=== PATIENT | female | born 1995 | race American Indian/Alaskan Native ===

== ENCOUNTER 2017-09-19 15:15 | Emergency (ER) | payer OTHER ==
[2017-09-19] MEDS ORDERED: Sodium Chloride 0.9% 1,000 ML IV STA (15:45)
[2017-09-19 15:58] VITALS: BMI 20.8
--- NOTE | 2017-09-19 16:08 | ED PDOC ---
Arrival/HPI - General Chief Complaint: GI Problem Time Seen by Provider: 09/19/17 15:44 Historian: Patient - History of Present Illness Narrative History of Present Illness (Text): 09/19/17 15:43 A 22 year old female, with no significant past medical history, presents to the emergency department complaining of s/p 10+ x vomiting non-bilious/non-bloody episodes that occurred upon waking up at 05:00 this morning. Patient reports last night having eaten home-prepared mac n/ cheese and steak prior to vomiting. LMP 06/29/2017. Patient is currently approximately 10 weeks . Denies any abdominal pain, any cardio/pulmonary symptoms, vaginal discharge/bleeding, or any other complaints at this time. Also, patient mentions having possible sick contact with boyfriend 1 week ago, whom was experiencing flu-like symptoms. PMD: Dr. Ernestine Washington 09/19/17 21:18 Past Medical History - Provider Review Nursing Documentation Reviewed: Yes - Infectious Disease Hx of Infectious Diseases: None - Tetanus Immunization Tetanus Immunization: Unknown - Reproductive Menopause: Yes - Past Medical History Past Medical History: No Previous - Psychiatric Hx Psychophysiologic Disorder: No Hx Anxiety: No Hx Bipolar Disorder: No Hx Depression: No Hx Emotional Abuse: No Hx Hallucinations: No Hx Panic Disorder: No Hx Post Traumatic Stress Disorder: No Hx Psychosis: No Hx Physical Abuse: No Hx Schizophrenia: No Hx Sexual Abuse: No Hx Substance Use: No - Past Surgical History Past Surgical History: No Previous - Anesthesia Hx Anesthesia: Yes Hx Anesthesia Reactions: No Hx Malignant Hyperthermia: No - Suicidal Assessment Feels Threatened In Home Enviroment: No Family/Social History - Physician Review Nursing Documentation Reviewed: Yes Family/Social History: No Known Family HX Smoking Status: Never Smoked Hx Alcohol Use: No Hx Substance Use: No Hx Substance Use Treatment: No Allergies/Home Meds Allergies/Adverse Reactions: Allergies No Known Allergies Allergy (Verified 09/19/17 15:45) Review of Systems - Physician Review All systems were reviewed & negative as marked: Yes - Review of Systems Respiratory: absent: SOB, Cough, Wheezing Cardiovascular: absent: Chest Pain, Palpitations Gastrointestinal: Vomiting (10+ times after waking up at 05:00). absent: Abdominal Pain Genitourinary Female: absent: Vaginal Bleeding, Vaginal Discharge Physical Exam Vital Signs Reviewed: Yes Vital Signs Temp Pulse Resp BP Pulse Ox 09/19/17 19:32 94 H 16 120/69 100 09/19/17 16:46 98.4 F 73 18 103/52 L 98 09/19/17 16:00 98.4 F 66 18 103/43 L 97 09/19/17 15:40 99.1 F 98 H 18 106/71 97 Temperature: Afebrile Blood Pressure: Normal Pulse: Regular Respiratory Rate: Normal Appearance: Positive for: Well-Appearing Pain Distress: None Mental Status: Positive for: Alert and Oriented X 3 - Systems Exam Head: Present: Atraumatic, Normocephalic Pupils: Present: PERRL Extroacular Muscles: Present: EOMI Conjunctiva: Present: Normal Mouth: Present: Moist Mucous Membranes Neck: Present: Normal Range of Motion Respiratory/Chest: Present: Clear to Auscultation, Good Air Exchange. No: Respiratory Distress, Accessory Muscle Use Cardiovascular: Present: Regular Rate and Rhythm, Normal S1, S2. No: Murmurs Abdomen: Present: Normal Bowel Sounds. No: Tenderness, Distention, Peritoneal Signs Back: Present: Normal Inspection Upper Extremity: Present: Normal Inspection. No: Cyanosis, Edema Lower Extremity: Present: Normal Inspection. No: Edema Neurological: Present: GCS=15, CN II-XII Intact, Speech Normal Skin: Present: Warm, Dry, Normal Color. No: Rashes Psychiatric: Present: Alert, Oriented x 3, Normal Insight, Normal Concentration Medical Decision Making ED Course and Treatment: 09/19/17 15:45 Impression: 22 year old female visiting ER for s/p 10+ x vomiting episodes. Physical examination is unremarkable. Plan: -- Labs -- Zofran -- IV Fluids -- Urinalysis -- Reassess and disposition Progress Notes: 09/19/17 21:20 PT FINALLY PO TOLERANT, SERIAL ABDOMINAL EXAMS are benign. Educated as to results of lab examination. - Lab Interpretations Lab Results: 09/19/17 16:25 09/19/17 16:25 Lab Results 09/19/17 18:37: Urine Color Yellow, Urine Appearance Clear, Urine pH 7.5, Ur Specific [place] 1.020, Urine Protein Trace H, Urine Glucose (UA) Negative, Urine Ketones >=80, Urine Blood Negative, Urine Nitrate Negative, Urine Bilirubin Negative, Urine Urobilinogen 0.2, Ur Leukocyte Esterase Negative, Urine RBC 0 - 2, Urine WBC 0 - 2, Ur Epithelial Cells 10 - 12, Urine Bacteria Few 09/19/17 17:35: Urine HCG, Qual Positive 09/19/17 16:25: Beta HCG, Quant [id number] H 09/19/17 16:25: PT 12.4, INR 1.09 H, APTT 28.6 09/19/17 16:25: WBC 11.8 H, RBC 4.85, Hgb 14.0, Hct 41.6, MCV 85.8, MCH 28.9, MCHC 33.7, RDW 12.7, Plt Count 269, MPV 10.4, Gran % 91.7 H, Lymph % (Auto) 2.6 L, [place] % (Auto) 5.6, Eos % (Auto) 0.0 L, Baso % (Auto) 0.1, Gran # 10.78 H, Lymph # (Auto) 0.3 L, [place] # (Auto) 0.7 H, Eos # (Auto) 0.0, Baso # (Auto) 0.01 , Neutrophils % (Manual) 94 H, Lymphocytes % (Manual) 2 L, Monocytes % (Manual) 4, Platelet Evaluation Normal 09/19/17 16:25: Sodium 140, Potassium 4.1, Chloride 104, Carbon Dioxide 23, Anion Gap 17, BUN 9, Creatinine 0.6 L, Est GFR ( Amer) > 60, Est GFR (Non -Af Amer) > 60, Random Glucose 85, Calcium 9.8, Total Bilirubin 1.3, AST 36, ALT 25, Alkaline Phosphatase 65, Total Protein 7.9, Albumin 4.3, Globulin 3.6, Albumin/Globulin Ratio 1.2, Lipase 55 - Medication Orders Current Medication Orders: Dextrose/Sodium Chloride (Dextrose 5%/0.45% Ns 1000 Ml) 1,000 mls @ 1,000 mls/ hr IV .Q1H MONICA Last Admin: 09/19/17 17:28 Dose: 1,000 mls/hr eMAR Start Stop Document 09/19/17 17:28 OCS (Rec: 09/19/17 17:28 OCS [id number]) Intravenous Solution Start Date 09/19/17 Start Time 17:28 End Date 09/19/17 End time 18:28 Total Infusion Time 60 Discontinued Medications Sodium Chloride (Sodium Chloride 0.9%) 1,000 mls @ 999 mls/hr IV .Q1H1M STA Stop: 09/19/17 16:45 Last Admin: 09/19/17 16:16 Dose: 999 mls/hr eMAR Start Stop Document 09/19/17 16:16 OCS (Rec: 09/19/17 16:16 OCS [id number]) Intravenous Solution Start Date 09/19/17 Start Time 16:16 End Date 09/19/17 End time 17:17 Total Infusion Time 61 Metoclopramide HCl (Reglan) 10 mg IVP STAT STA Stop: 09/19/17 19:51 Last Admin: 09/19/17 20:01 Dose: 10 mg IVP Administration Document 09/19/17 20:01 OCS (Rec: 09/19/17 20:01 OCS [id number]) Charges for Administration # of IVP Administrations 1 Nitrofurantoin Macrocrystals (Macrobid) 100 mg PO ONCE ONE PRN Reason: Protocol Stop: 09/19/17 19:52 Last Admin: 09/19/17 20:01 Dose: 100 mg Ondansetron HCl (Zofran Inj) 4 mg IVP STAT STA Stop: 09/19/17 15:47 Last Admin: 09/19/17 16:16 Dose: 4 mg IVP Administration Document 09/19/17 16:16 OCS (Rec: 09/19/17 16:16 OCS [id number]) Charges for Administration # of IVP Administrations 1 - Scribe Statement The provider has reviewed the documentation as recorded by the Parul Buchanan Provider Scribe Attestation: All medical record entries made by the Parul were at my direction and personally dictated by me. I have reviewed the chart and agree that the record accurately reflects my personal performance of the history, physical exam, medical decision making, and the department course for this patient. I have also personally directed, reviewed, and agree with the discharge instructions and disposition. Disposition/Present on Arrival - Present on Arrival Any Indicators Present on Arrival: No History of DVT/PE: No History of Uncontrolled Diabetes: No Urinary Catheter: No History of Decub. Ulcer: No History Surgical Site Infection Following: None - Disposition Have Diagnosis and Disposition been Completed?: Yes Diagnosis: Hyperemesis gravidarum before end of 22 week gestation with carbohydrate depletion Disposition: HOME/ ROUTINE Disposition Time: 21:28 Patient Plan: Discharge Condition: IMPROVED Discharge Instructions (ExitCare): Hyperemesis Gravidarum, Nausea and Vomiting of (DC) Print Language: [place] Additional Instructions: Drink plenty of water to maintain hydration , herbal teas such as ppermint/ gatorade and other electrolyte rich drink llike coconut water can also be of help. Take the anti-nausea medicine as needed. eat healthy and follow up with your regular pmd. Prescriptions: Nitrofurantoin Macrocrystals [Macrobid] 100 mg PO BID #14 cap Ondansetron ODT [Zofran ODT] 4 mg PO Q8 PRN #15 odt PRN Reason: Nausea/Vomiting Pnv No.95/Ferrous Fum/Folic AC [ Vitamin Tablet] 1 each PO DAILY #30 tablet Pyridoxine [Vitamin B6] 25 mg PO Q8 PRN #30 tab PRN Reason: Nausea/Vomiting Referrals: Ernestine Washington MD [Primary Care Provider] - Follow up with primary Forms: [employer] (E[place]ian)
[2017-09-19 16:49] LABS: ALB/GLOB RATIO 1.2 (1.1-1.8); ALBUMIN 4.3 g/dL (3.0-4.8); ALT/SGPT 25 U/L (7-56); AST/SGOT 36 U/L (14-36); BLOOD UREA NITROGEN 9 mg/dL (7-21); CALCIUM 9.8 mg/dL (8.4-10.5); GFR AFRICAN-AMERICAN > 60; GFR NON-AFRICAN AMERICAN > 60; LIPASE 55 U/L (23-300)
[2017-09-19 16:51] LABS: BASO # 0.01 K/mm3 (0.0-2.0); BASO % 0.1 % (0.0-3.0); GRAN # 10.78 (1.4-6.5); GRAN % 91.7 % (50.0-68.0); LYMPH # 0.3 (1.2-3.4); LYMPH % 2.6 % (22.0-35.0); MEAN CELL VOLUME 85.8 fl (80.0-105.0); MEAN CORPUSCULAR HEMOGLOBIN 28.9 pg (25.0-35.0); MEAN CORPUSCULAR HGB CONC 33.7 g/dl (31.0-37.0); MEAN PLATELET VOLUME 10.4 fl (7.0-11.0); MONO # 0.7 (0.1-0.6); MONO % 5.6 % (1.0-6.0); PLATELET COUNT 269 10^3/uL (120.0-450.0); RBC 4.85 10^6/uL (3.5-6.1); RED CELL DISTRIBUTION WIDTH 12.7 % (11.5-14.5); WHITE BLOOD COUNT 11.8 10^3/ul (4.5-11.0)
[2017-09-19 16:56] LABS: INR 1.09 (0.93-1.08); PARTIAL THROMBOPLASTIN TIME 28.6 Seconds (25.1-36.5); PROTHROMBIN TIME 12.4 SECONDS (9.4-12.5)
[2017-09-19 17:11] LABS: LYMPHOCYTE 2 % (22.0-35.0); MONOCYTE 4 % (1.0-6.0); NEUTROPHIL 94 % (50.0-70.0); PLATELET ESTIMATE NORMAL (NORMAL)
[2017-09-19] MEDS ORDERED: Dextrose 5%/0.45% NS 1,000 ML IV SCH (17:15)
[2017-09-19 17:50] VITALS: TEMP 98.4
[2017-09-19 18:45] LABS: PH,URINE 7.5 (4.7-8.0); URINE BILIRUBIN NEGATIVE (NEGATIVE); URINE BLOOD NEGATIVE (NEGATIVE); URINE GLUCOSE (UA) NEGATIVE (NEGATIVE); URINE LEUKOCYTE ESTERASE NEGATIVE Leu/uL (NEGATIVE); URINE PROTEIN TRACE mg/dL (<30 mg/dL); URINE UROBILINOGEN 0.2 E.U./dL (<1 E.U./dL)
[2017-09-19 18:48] LABS: URINE APPEARANCE CLEAR (CLEAR); URINE COLOR YELLOW (YELLOW)
[2017-09-19 18:49] LABS: URINE BACTERIA FEW (NEG); URINE RBC 0 - 2 /hpf (0-2); URINE WBC 0 - 2 /hpf (0-6)
[2017-09-19 19:33] VITALS: O2SAT 100
[2017-09-19 21:54] VITALS: BP 116/63; PULSE 92; RESP 18
== END 2017-09-19 21:52 | disposition home or self-care (01) ==
LOC: ED 15:15
DX: O21.1 Hyperemesis gravidarum with metabolic disturbance (principal); Z3A.10 10 weeks gestation of pregnancy
CPT/HCPCS: 80053; 81001; 83690; 84702; 84703; 85025; 85610; 85730; 96361; 96374; 96375; 99284; J2405; J2765; J7040; J7042